=== PATIENT | female | born 1975 | race Caucasian/White ===

== ENCOUNTER → 2017-04-07 07:48 | Outpatient (CLI) | payer OTHER, SELFPAY ==
--- NOTE | 2017-04-07 07:25 | HPBI_ITS ---
MAMMOGRAPHY - BILATERAL SCREENING REASON FOR EXAM: Female, 41 years old. Routine annual screening examination. PERTINENT HISTORY: Grandmother with breast cancer. Occasional pain in the upper outer quadrant of the left breast. TECHNIQUE: Digital bilateral breast jorge l (3D mammographic acquisition) in the CC and MLO projections. 2-D mediolateral oblique (MLO) and craniocaudad (CC) views of both breasts were obtained. CAD: Full Field Digital Mammography with Computer Added Detection was performed. COMPARISON: Comparison is made with prior study dated September 04, 2015 and January 24, 2014. FINDINGS: Breast Composition: The breasts are heterogeneously dense, which may obscure small masses. There are no dominant masses or suspicious calcifications. Stable benign-appearing bilateral axillary lymph nodes. No other significant abnormalities are identified. There has been no significant change since the prior study. HPBI/SCREENING MAMM (CAD), BILAT IMPRESSION: Stable bilateral screening mammogram. Yearly follow-up mammogram recommended. (A) ASSESSMENT CATEGORY: BIRADS Category 2: Benign. A letter regarding these results will be sent to the patient by the facility within 30 days. Approximately 10% of breast cancers are not detected by mammography. A normal mammogram should not delay biopsy of a clinically suspicious abnormality. [id number] Electronically Signed: Jonas Loving MD at 8:23 EST Tel [phone], Service support ,
== END ==
PROVIDERS: Visit Provider Obstetrics & Gynecology
DX: Z12.31 Encounter for screening mammogram for malignant neoplasm of breast (principal)
CPT/HCPCS: 77063; 77067

== ENCOUNTER → 2018-03-10 07:27 | Outpatient (CLI) | payer OTHER, SELFPAY ==
[2018-02-05 08:18] VITALS: BMI 34.0
[2018-03-10 08:56] LABS: Basophil# 0.06 X10^3/uL; Basophil% 1.1 % (0-1); Eosinophil# 0.16 X10^3/uL; Eosinophils% 2.9 % (0-5); Hematocrit 44.1 % (37-47); Hemoglobin 14.7 g/dl (12.0-15.0); Lymphocyte % 33.1 % (19-41); Mean Corp Hgb Conc 33.3 g/gl (32-36); Mean Corpuscular Hgb 30.5 pg (27.0-32.0); Mean Corpuscular Volume 91.5 fL (81-99); Mean Platelet Vol. 9.4 fl (6.2-12.0); Monocyte# 0.38 X10^3/uL; Neutrophil # 3.02 X10^3/uL (2.7-7.7); Neutrophil % 55.7 % (47-70); Platelet Count 236 K/mm3 (150-450); RBC Distribution Width CV 12.5 % (11.6-14.6); RBC Distribution Width SD 40.9 fl (35.1-43.9); Red Blood Count 4.82 M/mm3 (4.2-5.4); White Blood Count 5.4 K/mm3 (4.4-11.0)
[2018-03-10 08:59] LABS: POSITIVE COUNT NO; POSITIVE DIFFERENTIAL NO; POSITIVE MORPHOLOGY NO
[2018-03-10 09:14] LABS: ALB/GLOB Ratio 1.1 RATIO (0.9-2.4); AST(SGOT) 25 U/L (15-37); Alanine Aminotransfer ALT/SGPT 39 U/L (13-56); Albumin, Serum 3.8 g/dL (3.2-5.0); Alkaline Phosphatase 61 U/L (45-117); Anion Gap 8 (5-15); BUN 13 mg/dL (7-18); BUN/Creat Ratio 15.1 RATIO (10-20); Calcium,Total 9.1 mg/dL (8.5-10.1); Chloride 106 mmol/L (98-107); Cholesterol 242 mg/dL (200); Creatinine, Serum 0.86 mg/dL (0.55-1.02); EST Glomerular Filtration Rate 77 mL/min (>60); Est Glom Filt Rate - Afr Amer 93 mL/min (>60); Globulin 3.5 g/dL (2.2-4.2); Glucose 120 mg/dL (74-106); High Density Lipoprotein 53 mg/dL; Protein, Total 7.3 g/dL (6.4-8.2); Sodium Level 142 mmol/L (136-145); Triglycerides 87 mg/dL; Very Low Density Lipoprotein 17 mg/dL (5-40)
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
== END ==
PROVIDERS: Family Provider Internal Medicine; PCP Internal Medicine; Referring Provider Internal Medicine; Visit Provider Internal Medicine
DX: K21.9 Gastro-esophageal reflux disease without esophagitis (principal); R03.0 Elevated blood-pressure reading, without diagnosis of hypertension
CPT/HCPCS: 36415; 80053; 80061; 85025

== ENCOUNTER → 2018-04-20 08:06 | Outpatient (CLI) | payer OTHER, SELFPAY ==
[2018-04-02 08:19] VITALS: BMI 34.0
[2018-04-20 12:42] LABS: Anion Gap 9 (5-15); BUN 16 mg/dL (7-18); Calcium,Total 8.7 mg/dL (8.5-10.1); Chloride 103 mmol/L (98-107); Creatinine, Serum 0.84 mg/dL (0.55-1.02); EST Glomerular Filtration Rate 79 mL/min (>60); Est Glom Filt Rate - Afr Amer 95 mL/min (>60); Glucose 116 mg/dL (74-106); Potassium 4.1 mmol/L (3.5-5.1); Sodium Level 138 mmol/L (136-145)
== END ==
PROVIDERS: Family Provider Internal Medicine; PCP Internal Medicine; Visit Provider Internal Medicine
DX: I10 Essential (primary) hypertension (principal)
CPT/HCPCS: 36415; 80048

== ENCOUNTER → 2018-04-21 07:41 | Outpatient (CLI) | payer OTHER, SELFPAY ==
[2018-04-02 08:19] VITALS: BMI 34.0
--- NOTE | 2018-04-21 07:44 | BI_ITS ---
MAMMOGRAPHY - BILATERAL SCREENING REASON FOR EXAM: Female, 42 years old. Routine annual screening examination. PERTINENT HISTORY: Grandmother with breast cancer. TECHNIQUE: Digital bilateral breast jorge l (3D mammographic acquisition) in the CC and MLO projections. 2-D mediolateral oblique (MLO) and craniocaudad (CC) views of both breasts were obtained. CAD: Full Field Digital Mammography with Computer Added Detection was performed. COMPARISON: Comparison is made with prior study dated April 07, 2017 and September 04, 2015. FINDINGS: Breast Composition: The breasts are heterogeneously dense, which may obscure small masses. There are no dominant masses or suspicious calcifications. Stable asymmetry of breast tissue where more breast tissue is seen in the upper outer quadrant of the left breast as compared to the left side. Stable benign-appearing bilateral axillary lymph nodes. No other significant abnormalities are identified. There has been no significant change since the prior study. BI/SCREENING MAMM (CAD), BILAT IMPRESSION: Stable bilateral screening mammogram. Yearly follow-up mammogram recommended. (A) ASSESSMENT CATEGORY: BIRADS Category 2: Benign. A letter regarding these results will be sent to the patient by the facility within 30 days. Approximately 10% of breast cancers are not detected by mammography. A normal mammogram should not delay biopsy of a clinically suspicious abnormality. [id number] Electronically Signed: Jonas Loving, at 9:53 EST , Service support ,
== END ==
PROVIDERS: PCP Internal Medicine; Referring Provider Obstetrics & Gynecology; Visit Provider Obstetrics & Gynecology
DX: Z12.31 Encounter for screening mammogram for malignant neoplasm of breast (principal)
CPT/HCPCS: 77063; 77067

== ENCOUNTER → 2019-09-12 08:45 | Outpatient (CLI) | payer OTHER, SELFPAY ==
[2019-09-12 08:16] VITALS: BMI 34.0
[2019-09-12 12:31] LABS: Absolute Lymphocyte Count 1.55 X10^3/uL (0.83-4.51); Absolute Neutrophil Count 3.5 X10^3/uL (2.0-7.7); Basophil# 0.08 X10^3/uL; Basophil% 1.4 % (0-1); Eosinophil# 0.08 X10^3/uL; Eosinophils% 1.4 % (0-5); Hematocrit 46.1 % (37-47); Hemoglobin 14.9 g/dL (12.0-15.0); Lymphocyte # 1.55 X10^3/ul (4.0); Lymphocyte % 27.9 % (19-41); Mean Corp Hgb Conc 32.3 g/dL (32-36); Mean Corpuscular Hgb 30.7 pg (27.0-32.0); Mean Corpuscular Volume 95.1 fL (81-99); Mean Platelet Vol. 10.1 fl (6.2-12.0); Monocyte# 0.37 X10^3/uL; Monocyte% 6.7 % (0-10); NRBC Flagged by Analyzer 0 % (0-5); Neutrophil # 3.47 X10^3/uL (2.7-7.7); Neutrophil % 62.4 % (47-70); Platelet Count 250 K/mm3 (150-450); RBC Distribution Width CV 12.1 % (11.6-14.6); RBC Distribution Width SD 42.2 fl (35.1-43.9); Red Blood Count 4.85 M/mm3 (4.2-5.4); White Blood Count 5.6 K/mm3 (4.4-11.0)
[2019-09-12 13:09] LABS: ALB/GLOB Ratio 1.1 RATIO (0.9-2.4); AST(SGOT) 19 U/L (15-37); Alanine Aminotransfer ALT/SGPT 27 U/L (13-56); Alkaline Phosphatase 51 U/L (45-117); Anion Gap 3 (5-15); BUN 18 mg/dL (7-18); BUN/Creat Ratio 22.2 RATIO (10-20); Chloride 106 mmol/L (98-107); Cholesterol 156 mg/dL (200); Creatinine, Serum 0.81 mg/dL (0.55-1.02); EST Glomerular Filtration Rate 82 mL/min (>60); Est Glom Filt Rate - Afr Amer 99 mL/min (>60); Globulin 3.7 g/dL (2.2-4.2); Glucose 117 mg/dL (74-106); High Density Lipoprotein 55 mg/dL; Potassium 4.1 mmol/L (3.5-5.1); Protein, Total 7.7 g/dL (6.4-8.2); Sodium Level 137 mmol/L (136-145); Triglycerides 76 mg/dL; Very Low Density Lipoprotein 15 mg/dL (5-40)
[2019-09-15 09:11] LABS: Hemoglobin A1c 5.4 % (3.8-5.6)
== END ==
LOC: BIMLAB 08:45
PROVIDERS: PCP Internal Medicine; Referring Provider Internal Medicine; Visit Provider Internal Medicine
DX: I10 Essential (primary) hypertension (principal); E78.5 Hyperlipidemia, unspecified; K21.9 Gastro-esophageal reflux disease without esophagitis; R73.9 Hyperglycemia, unspecified
CPT/HCPCS: 36415; 80053; 80061; 83036; 85025

== ENCOUNTER → 2019-09-26 07:38 | Outpatient (CLI) | payer OTHER, SELFPAY ==
[2019-09-12 08:16] VITALS: BMI 34.0
--- NOTE | 2019-09-26 07:38 | BI_ITS ---
MAMMOGRAPHY - BILATERAL SCREENING REASON FOR EXAM: Female, 44 years old. Routine annual screening examination. PERTINENT HISTORY: Grandmother with breast cancer. Occasional left lateral breast pain. TECHNIQUE: Digital bilateral breast santos (3D mammographic acquisition) in the CC and MLO projections. 2-D mediolateral oblique (MLO) and craniocaudad (CC) views of both breasts were obtained. CAD: Full Field Digital Mammography with Computer Added Detection was performed. COMPARISON: Comparison is made with prior study of 04/21/2018 and 04/07/2017. FINDINGS: Breast Composition: The breasts are heterogeneously dense, which may obscure small masses. There are no dominant masses or suspicious calcifications. Once again, there is stable asymmetry of breast tissue where more breast tissue is seen in the upper outer quadrant of the left breast as compared to the right side. Stable benign-appearing bilateral axillary lymph nodes. No other significant abnormalities are identified. There has been no significant change since the prior study. BI/SCREEN MAMM (CAD) W/SANTOS BILAT IMPRESSION: Stable bilateral screening mammogram. Yearly follow-up mammogram recommended. (A) ASSESSMENT CATEGORY: BIRADS Category 2: Benign. A letter regarding these results will be sent to the patient by the facility within 30 days. Approximately 10% of breast cancers are not detected by mammography. A normal mammogram should not delay biopsy of a clinically suspicious abnormality. [id number] Electronically Signed: Jonas Loving, at 8:44 EDT , Service support ,
== END ==
PROVIDERS: PCP Internal Medicine; Referring Provider Internal Medicine; Visit Provider Internal Medicine
DX: Z12.31 Encounter for screening mammogram for malignant neoplasm of breast (principal)
CPT/HCPCS: 77063; 77067

== ENCOUNTER → 2020-10-23 09:10 | Outpatient (CLI) | payer OTHER, SELFPAY ==
[2020-10-23 12:10] LABS: Absolute Lymphocyte Count 1.66 X10^3/uL (0.83-4.51); Absolute Neutrophil Count 4.1 X10^3/uL (2.0-7.7); Basophil# 0.05 X10^3/uL; Basophil% 0.8 % (0-1); Eosinophils% 1.6 % (0-5); Hematocrit 46.1 % (37-47); Hemoglobin 15.2 g/dL (12.0-15.0); Lymphocyte # 1.66 X10^3/ul (0.83-4.51); Lymphocyte % 26.3 % (19-41); Mean Corpuscular Volume 94.1 fL (81-99); Mean Platelet Vol. 9.6 fl (6.2-12.0); Monocyte% 6.3 % (0-10); NRBC Flagged by Analyzer 0 % (0-5); Neutrophil # 4.07 X10^3/uL (2.7-7.7); Neutrophil % 64.7 % (47-70); Platelet Count 227 K/mm3 (150-450); RBC Distribution Width CV 12.4 % (11.6-14.6); RBC Distribution Width SD 43.2 fl (35.1-43.9); White Blood Count 6.3 K/mm3 (4.4-11.0)
[2020-10-23 12:29] LABS: ALB/GLOB Ratio 0.9 RATIO (0.9-2.4); AST(SGOT) 23 U/L (15-37); Alanine Aminotransfer ALT/SGPT 31 U/L (13-56); Albumin, Serum 3.6 g/dL (3.2-5.0); Alkaline Phosphatase 48 U/L (45-117); Anion Gap 4 (5-15); BUN 15 mg/dL (7-18); BUN/Creat Ratio 19.6 RATIO (10-20); Calcium,Total 8.8 mg/dL (8.5-10.1); Chloride 104 mmol/L (98-107); Cholesterol 176 mg/dL (200); Creatinine, Serum 0.77 mg/dL (0.55-1.02); EST Glomerular Filtration Rate 87 mL/min (>60); Est Glom Filt Rate - Afr Amer 105 mL/min (>60); Globulin 3.8 g/dL (2.2-4.2); Glucose 114 mg/dL (74-106); High Density Lipoprotein 57 mg/dL; Potassium 4.2 mmol/L (3.5-5.1); Protein, Total 7.4 g/dL (6.4-8.2); Sodium Level 136 mmol/L (136-145); Triglycerides 86 mg/dL; Very Low Density Lipoprotein 17 mg/dL (5-40)
== END ==
LOC: BIMLAB 09:11
PROVIDERS: PCP Internal Medicine; Referring Provider Internal Medicine; Visit Provider Internal Medicine
DX: Z00.00 Encounter for general adult medical examination without abnormal findings (principal)
CPT/HCPCS: 36415; 80053; 80061; 85025

== ENCOUNTER → 2020-11-05 07:10 | Outpatient (CLI) | payer OTHER, SELFPAY ==
--- NOTE | 2020-11-05 07:12 | BI_ITS ---
MAMMOGRAPHY - BILATERAL SCREENING REASON FOR EXAM: Female, 45 years old. Routine annual screening examination. PERTINENT HISTORY: Non-contributory. TECHNIQUE: Digital bilateral breast santos (3D mammographic acquisition) in the CC and MLO projections. 2-D mediolateral oblique (MLO) and craniocaudad (CC) views of both breasts were obtained. CAD: Full Field Digital Mammography with Computer Added Detection was performed. COMPARISON: Comparison is made with prior study dated 09/26/2019 and 04/21/2018. FINDINGS: Breast Composition: The breasts are heterogeneously dense, which may obscure small masses. There are no dominant masses or suspicious calcifications. Focal area of architectural distortion is seen on the craniocaudad view of the right breast in the lateral aspect. This is not well-seen on the MLO view. The patient will be recalled for additional views including compression spot views. No other significant abnormalities are identified. BI/SCRN MAMM (CAD)W/SANTOS BILAT IMPRESSION: Further imaging evaluation recommended, as described above. (E) Recall Side: Right Breast ASSESSMENT CATEGORY: BIRADS Category 0: Incomplete. Need additional imaging evaluation. A letter regarding these results will be sent to the patient by the facility within 30 days. Approximately 10% of breast cancers are not detected by mammography. A normal mammogram should not delay biopsy of a clinically suspicious abnormality. [id number] Electronically Signed: Jonas Loving MD at 9:07 EDT , Service support ,
== END ==
PROVIDERS: PCP Internal Medicine; Referring Provider Internal Medicine; Visit Provider Internal Medicine
DX: Z12.31 Encounter for screening mammogram for malignant neoplasm of breast (principal)
CPT/HCPCS: 77063; 77067

== ENCOUNTER → 2020-11-08 14:23 | Outpatient (CLI) | payer OTHER, SELFPAY ==
--- NOTE | 2020-11-08 14:28 | BI_ITS ---
MAMMOGRAPHY - UNILATERAL DIAGNOSTIC: RIGHT BREAST REASON FOR EXAM: Female, 45 years old. Abnormal screening mammogram. PERTINENT HISTORY: Grandmother with breast cancer. TECHNIQUE: Compression spot views of the upper-outer quadrant of the right breast in the mediolateral oblique and craniocaudad views were obtained. CAD: Full Field Digital Mammography with Computer Added Detection was performed. COMPARISON: Comparison is made with prior study 11/05/2020. FINDINGS: Breast Composition: The breasts are heterogeneously dense, which may obscure small masses. Persistent architectural distortion is seen in the upper lateral aspect of the breast. Correlation with ultrasound is recommended. No other significant abnormalities are identified. BI/DIAG MAMM W/CAD, UNILAT IMPRESSION: Persistent architectural distortion is seen in the upper outer quadrant of the breast. Correlation with ultrasound is recommended. ASSESSMENT CATEGORY: BIRADS Category 0: Incomplete. Need additional imaging evaluation. A letter regarding these results will be sent to the patient by the facility within 30 days. Approximately 10% of breast cancers are not detected by mammography. A normal mammogram should not delay biopsy of a clinically suspicious abnormality. Electronically Signed: Jonas Loving MD at 15:09 EDT , Service support ,
--- NOTE | 2020-11-08 14:28 | US_ITS ---
STUDY: ULTRASOUND BREAST - RIGHT REASON FOR EXAM: Female, 45 years old. Abnormal screening mammogram. TECHNIQUE: Axial and longitudinal images of the RIGHT breast were performed with a high resolution ultrasound transducer. # OF IMAGES: 64 COMPARISON: Comparison is made with prior mammogram done earlier in the day. FINDINGS: RIGHT Breast: The upper outer quadrant of the right breast was examined by ultrasound. No sonographic abnormality is seen. Further correlation with MRI is recommended. US/Breast Limited Unilateral IMPRESSION: No sonographic abnormality is seen. Persistent architectural distortion on the mammogram. Correlation with MRI is recommended. ASSESSMENT CATEGORY: BIRADS Category 0: Incomplete. Need additional imaging evaluation. A letter regarding these results will be sent to the patient by the facility within 30 days. Electronically Signed: Jonas Loving MD at 15:49 EDT , Service support ,
== END ==
LOC: OPBI 14:23
PROVIDERS: PCP Internal Medicine; Referring Provider Internal Medicine; Visit Provider Internal Medicine
DX: R92.8 Other abnormal and inconclusive findings on diagnostic imaging of breast (principal); Z80.3 Family history of malignant neoplasm of breast
CPT/HCPCS: 76642; 77065

== ENCOUNTER → 2020-11-16 10:59 | Outpatient (CLI) | payer OTHER, SELFPAY ==
--- NOTE | 2020-11-16 11:02 | MRI_ITS ---
STUDY: BILATERAL BREAST MR WITHOUT AND WITH CONTRAST REASON FOR EXAM: Female, 45 years old. Architectural distortion on mammography. Normal right breast ultrasound. TECHNIQUE: Multi-sequence multi-echo imaging of both breasts was performed with a dedicated breast coil. T1-weighted and T2-weighted images were performed before the administration of contrast. T1-weighted images were also performed after the administration of 18 mL of Dotarem contrast without complications. COMPARISON: Bilateral mammogram dated 11/08/2020, right diagnostic mammogram dated 11/08/2020 and right breast ultrasound dated 11/08/2020. FINDINGS: RIGHT BREAST: The breast tissue is scattered fibroglandular densities with moderate background enhancement. Asymmetry of glandular tissue, right greater than left, in the upper outer quadrant. The architectural distortion in the right breast is noted but does not have significant enhancement. 6 mm in diameter enhancing ovoid circumscribed mass in the upper outer quadrant at the inferior aspect of the architectural distortion. There are no abnormal enhancing masses or areas of non-mass enhancement in the right breast. Normal lymph nodes in the right axilla. LEFT BREAST: The breast tissue is scattered fibroglandular densities with moderate background enhancement. 5 mm in diameter enhancing circumscribed mass at the 11 o''clock position. There are no abnormal enhancing masses or areas of non-mass enhancement in the left breast. There are no enlarged or abnormal lymph nodes. There is no abnormality in the visualized regions of the chest or liver. MRI/Breast Bilateral W/O and W IMPRESSION: Architectural distortion which matches the mammographic findings. A single 6 mm in diameter circumscribed ovoid enhancing mass in the upper outer quadrant at the inferior border of the architectural distortion. A 6 month follow-up right diagnostic mammogram, right ultrasound and MRI of the breast with contrast is recommended to be sure there is no change in these findings. 5 mm in diameter ovoid circumscribed enhancing mass at the level of the position of the left breast, thought to be fibrocystic. This also can be reevaluated at the repeat breast MRI study in 6 months. CATEGORY: BIRADS Category 3: Probably Benign - Short-Interval Follow-up Suggested. A letter regarding these results will be sent to the patient by the facility within 30 days. Electronically Signed: Jesus Chakraborty MD at 13:32 EDT , Service support ,
== END ==
PROVIDERS: PCP Internal Medicine; Referring Provider Internal Medicine; Visit Provider Internal Medicine
DX: R92.8 Other abnormal and inconclusive findings on diagnostic imaging of breast (principal); N64.89 Other specified disorders of breast
CPT/HCPCS: 77049; A9575; C8908

== ENCOUNTER 2021-05-23 08:48 | Outpatient (CLI) | payer OTHER, SELFPAY ==
--- NOTE | 2021-05-23 08:54 | US_ITS ---
STUDY: ULTRASOUND BREAST - RIGHT REASON FOR EXAM: Female, 45 years old. Abnormal screening mammogram. Persistent architectural distortion in the upper lateral aspect of the right breast. TECHNIQUE: Axial and longitudinal images of the RIGHT breast were performed with a high resolution ultrasound transducer. # OF IMAGES: 101 COMPARISON: Comparison is made with prior mammogram done earlier in the day. FINDINGS: RIGHT Breast: The lateral half of the right breast was examined by ultrasound. There is heterogeneously dense breast. No sonographic abnormality is seen. US/Breast Limited Unilateral IMPRESSION: No sonographic abnormality is seen as described. Correlation with a repeat MRI is recommended. ASSESSMENT CATEGORY: BIRADS Category 0: Incomplete. Need additional imaging evaluation. A letter regarding these results will be sent to the patient by the facility within 30 days. Electronically Signed: Jonas Loving MD at 13:59 EDT ,
--- NOTE | 2021-05-23 08:54 | MRI_ITS ---
STUDY: BILATERAL BREAST MR WITHOUT AND WITH CONTRAST REASON FOR EXAM: Female, 45 years old. Follow-up of architectural distortion of right breast. TECHNIQUE: Multi-sequence multi-echo imaging of both breasts was performed with a dedicated breast coil. T1-weighted and T2-weighted images were performed before the administration of contrast. T1-weighted images were also performed after the administration of 18 mL of Dotarem contrast. COMPARISON: Prior MRI of the breasts dated 11/16/2020, bilateral mammogram dated 05/23/2021 and right breast ultrasound dated 05/23/2021. FINDINGS: RIGHT BREAST: The breast tissue is scattered fibroglandular densities with minimal background enhancement. Stable mild architectural distortion in the upper outer quadrant of the right breast. Stable 5 mm in diameter circumscribed mass in the right breast at the 11 o''clock position. There are no abnormal enhancing masses or areas of non-mass enhancement in the right breast. LEFT BREAST: The breast tissue is scattered fibroglandular densities with minimal background enhancement. There are no abnormal enhancing masses or areas of non-mass enhancement in the left breast. There are no enlarged or abnormal lymph nodes. There is no abnormality in the visualized regions of the chest or liver. MRI/Breast Bilateral W/O and W IMPRESSION: Stable 5 mm in diameter circumscribed mass at the 11 o''clock position of the right breast. No architectural distortion on the breast MRI examination at this time. Yearly follow-up screening mammogram with right diagnostic mammogram and repeat right breast ultrasound would be appropriate. CATEGORY: BIRADS Category 2: Benign. A letter regarding these results will be sent to the patient by the facility within 30 days. Electronically Signed: Jesus Chakraborty MD at 10:09 EDT ,
--- NOTE | 2021-05-23 08:54 | BI_ITS ---
MAMMOGRAPHY - BILATERAL DIAGNOSTIC REASON FOR EXAM: Female, 45 years old. Six-month follow-up examination for architectural distortion in the upper lateral aspect of the right breast. PERTINENT HISTORY: Grandmother with breast cancer. TECHNIQUE: Digital bilateral breast jorge l (3D mammographic acquisition) in the CC and MLO projections. 2-D mediolateral oblique (MLO) and craniocaudad (CC) views of both breasts were obtained. Compression views of the right breast in the mediolateral oblique and craniocaudad projections were obtained as well. CAD: Full Field Digital Mammography with Computer Added Detection was performed. COMPARISON: Comparison is made with prior study dated 11/08/2020 11/05/2020. FINDINGS: Breast Composition: The breasts are heterogeneously dense, which may obscure small masses. Once again, there is persistent architectural distortion in the upper lateral aspect of the right breast. A repeat MR and ultrasound is recommended for further evaluation. No other significant abnormalities are identified. BI/DIAG MAMM W/CAD, BILAT IMPRESSION: Persistent architectural distortion in the upper outer quadrant of the right breast as described. A repeat MRI examination as well as ultrasound is recommended for further evaluation. ASSESSMENT CATEGORY: BIRADS Category 0: Incomplete. Need additional imaging evaluation. A letter regarding these results will be sent to the patient by the facility within 30 days. Approximately 10% of breast cancers are not detected by mammography. A normal mammogram should not delay biopsy of a clinically suspicious abnormality. Electronically Signed: Jonas Loving MD at 10:57 EDT ,
== END 2021-05-23 23:59 | disposition home or self-care (01) ==
LOC: OPBI 08:51
PROVIDERS: PCP Internal Medicine; Referring Provider Internal Medicine; Visit Provider Internal Medicine
DX: R92.8 Other abnormal and inconclusive findings on diagnostic imaging of breast (principal); R92.2 Inconclusive mammogram
CPT/HCPCS: 76642; 77049; 77062; 77066; A9575; A4216; C8908; G0279

== ENCOUNTER → 2022-01-06 | Outpatient (CLI) | payer OTHER, SELFPAY ==
[2022-01-06 12:19] LABS: Absolute Lymphocyte Count 1.49 X10^3/uL (0.83-4.51); Basophil# 0.06 X10^3/uL; Eosinophil# 0.08 X10^3/uL; Eosinophils% 1.3 % (0-5); Hematocrit 43.4 % (37-47); Hemoglobin 14.2 g/dL (12.0-15.0); Lymphocyte # 1.49 X10^3/ul (0.83-4.51); Lymphocyte % 24.6 % (19-41); Mean Corp Hgb Conc 32.7 g/dL (32-36); Mean Corpuscular Hgb 30.9 pg (27.0-32.0); Mean Corpuscular Volume 94.3 fL (81-99); Mean Platelet Vol. 9.9 fl (6.2-12.0); Monocyte# 0.38 X10^3/uL; Monocyte% 6.3 % (0-10); NRBC Flagged by Analyzer 0 % (0-5); Neutrophil % 66.1 % (47-70); Platelet Count 244 K/mm3 (150-450); RBC Distribution Width CV 12.3 % (11.6-14.6); RBC Distribution Width SD 42.7 fl (35.1-43.9); White Blood Count 6.1 K/mm3 (4.4-11.0)
[2022-01-06 12:41] LABS: AST(SGOT) 22 U/L (15-37); Alanine Aminotransfer ALT/SGPT 31 U/L (13-56); Albumin, Serum 3.8 g/dL (3.2-5.0); Alkaline Phosphatase 49 U/L (45-117); Anion Gap 6 (5-15); BUN 18 mg/dL (7-18); BUN/Creat Ratio 23.6 RATIO (10-20); Calcium,Total 9.1 mg/dL (8.5-10.1); Chloride 108 mmol/L (98-107); Cholesterol 165 mg/dL (200); Creatinine, Serum 0.76 mg/dL (0.55-1.02); EST Glomerular Filtration Rate 87 mL/min (>60); Est Glom Filt Rate - Afr Amer 105 mL/min (>60); Globulin 3.7 g/dL (2.2-4.2); Glucose 128 mg/dL (74-106); High Density Lipoprotein 55 mg/dL; Potassium 3.6 mmol/L (3.5-5.1); Protein, Total 7.5 g/dL (6.4-8.2); Sodium Level 139 mmol/L (136-145); Triglycerides 129 mg/dL; Very Low Density Lipoprotein 26 mg/dL (5-40)
== END | disposition home or self-care (01) ==
PROVIDERS: PCP Internal Medicine; Visit Provider Physician Assistant
DX: Z00.00 Encounter for general adult medical examination without abnormal findings (principal)
CPT/HCPCS: 36415; 80053; 80061; 85025

== ENCOUNTER → 2022-01-16 | Outpatient (CLI) | payer OTHER, SELFPAY ==
--- NOTE | 2022-01-16 07:28 | BI_ITS ---
MAMMOGRAPHY - BILATERAL SCREENING REASON FOR EXAM: Female, 46 years old. Routine annual screening examination. PERTINENT HISTORY: Grandmother with breast cancer. TECHNIQUE: Digital bilateral breast santos (3D mammographic acquisition) in the CC and MLO projections. 2-D mediolateral oblique (MLO) and craniocaudad (CC) views of both breasts were obtained. CAD: Full Field Digital Mammography with Computer Added Detection was performed. COMPARISON: Comparison is made with prior examination of 11/05/2020 and 05/23/2021. FINDINGS: Breast Composition: The breasts are heterogeneously dense, which may obscure small masses. There are no dominant masses or suspicious calcifications. Stable small benign-appearing bilateral axillary lymph nodes. No other significant abnormalities are identified. There has been no significant change since the prior study. BI/SCRN MAMM (CAD)W/SANTOS BILAT IMPRESSION: Stable bilateral screening mammogram. Yearly follow-up mammogram recommended. (A) ASSESSMENT CATEGORY: BIRADS Category 2: Benign. A letter regarding these results will be sent to the patient by the facility within 30 days. Approximately 10% of breast cancers are not detected by mammography. A normal mammogram should not delay biopsy of a clinically suspicious abnormality. [id number] Electronically Signed: Jonas Loving MD at 9:34 EST ,
== END | disposition home or self-care (01) ==
LOC: OPBI 07:26
PROVIDERS: PCP Internal Medicine; Referring Provider Student in an Organized Health Care Education/Training Program; Visit Provider Student in an Organized Health Care Education/Training Program
DX: Z12.31 Encounter for screening mammogram for malignant neoplasm of breast (principal)
CPT/HCPCS: 77063; 77067

== ENCOUNTER 2022-08-01 07:42 | Day surgery (SDC) | payer OTHER, SELFPAY ==
[2022-08-01] MEDS: Lactated Ringers 1,000 ML 15 ML IV (08:08)
[2022-08-01 08:11] VITALS: BP 135/88; PULSE 71; RESP 16; TEMP 36.6; O2SAT 96; BMI 33.1
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
--- NOTE | 2022-08-01 09:37 | OP.COLON_ITS ---
Patient Name: Laura Kenny Procedure Date: 08/01/2022 9:11 AM Date of : 1975 Age: 47 Procedure: Colonoscopy Indications: Screening for colorectal malignant neoplasm Providers: Chad Lunsford MD Referring MD: Chad Lunsford MD Medicines: Propofol per Anesthesia Patient Profile: This is a 47 year old female. Refer to note in patient chart for documentation of history and physical. Last Colonoscopy: none. The patient's first colonoscopy is today. Complications: No immediate complications. Procedure: Pre-Anesthesia Assessment: - Prior to the procedure, a History and Physical was performed, and patient medications and allergies were reviewed. The patient's tolerance of previous anesthesia was also reviewed. The risks and benefits of the procedure and the sedation options and risks were discussed with the patient. All questions were answered, and informed consent was obtained. Prior Anticoagulants: The patient has taken no previous anticoagulant or antiplatelet agents. After reviewing the risks and benefits, the patient was deemed in satisfactory condition to undergo the procedure. After I obtained informed consent, the scope was passed under direct vision. Throughout the procedure, the patient's blood pressure, pulse, and oxygen saturations were monitored continuously. The adult colonoscope was introduced through the anus and advanced to the cecum, identified by appendiceal orifice and ileocecal valve. The colonoscopy was performed without difficulty. The patient tolerated the procedure well. The quality of the bowel preparation was good. Scope In: 9:24:36 AM Scope Withdrawal Time 0 hours 6 minutes 1 second Scope Out: 9:35:00 AM Total Procedure Duration Time 0 hours 10 minutes 24 seconds Findings: The entire examined colon appeared normal on direct and retroflexion views. Impression: - The entire examined colon is normal on direct and retroflexion views. - No specimens collected. Recommendation: - Discharge patient to home. - Resume previous diet. - Continue present medications. - Repeat colonoscopy in 10 years for screening purposes. Procedure Code(s): --- Professional --- 48589, Colonoscopy, flexible; diagnostic, including collection of specimen(s) by brushing or washing, when performed (separate procedure) Diagnosis Code(s): --- Professional --- Z12.11, Encounter for screening for malignant neoplasm of colon CPT copyright 2017 [employer]. All rights reserved. The codes documented in this report are preliminary and upon forming process worker review may be revised to meet current compliance requirements. Chad Lunsford MD 08/01/2022 9:36:44 AM This report has been signed electronically. Number of Addenda: 0 Note Initiated On: 08/01/2022 9:11 AM
[2022-08-01 09:38] VITALS: BP 105/54; BP 135/88; PULSE 68; RESP 16; TEMP 36.9; O2SAT 99
--- NOTE | 2022-08-01 09:38 | OP.CCLET_ITS ---
08/01/2022 Catrachito Garnica MD [address] [place] [address] [place] [address] Re : Colonoscopy procedure for Laura Kenny Dear Dr. Garnica This procedure was performed on Monday, August 01, 2022. My impressions and recommendations are as follows: Impressions : - The entire examined colon is normal on direct and retroflexion views. - No specimens collected. Recommendations : - Discharge patient to home. - Resume previous diet. - Continue present medications. - Repeat colonoscopy in 10 years for screening purposes. My findings are described in the full procedure note, which is enclosed. If I can be of further assistance, please feel free to contact me at Doctor phone number(s): , Work: . Sincerely, Chad Lunsford MD 08/01/2022 9:36:44 AM This report has been signed electronically.
[2022-08-01 09:40] VITALS: BP 109/73; BP 135/88; PULSE 60; RESP 16; O2SAT 94
[2022-08-01 09:44] VITALS: BP 112/70; BP 135/88; PULSE 59; RESP 16; O2SAT 95
[2022-08-01 09:52] VITALS: BP 115/73; BP 135/88; PULSE 55; RESP 16; TEMP 36.3; O2SAT 96
[2022-08-01 10:04] VITALS: BP 135/88
== END 2022-08-01 10:15 | disposition home or self-care (01) ==
LOC: EN 07:45 → AC 07:45
PROVIDERS: PCP Internal Medicine; Referring Provider Surgery; Visit Provider Surgery
PROC: 0DJD8ZZ Inspection of Lower Intestinal Tract, Via Natural or Artificial Opening Endoscopic (ICD-10-PCS; CPT 45378; principal; 2022-08-01 08:55)
DX: Z12.11 Encounter for screening for malignant neoplasm of colon (principal); E78.00 Pure hypercholesterolemia, unspecified; Z87.891 Personal history of nicotine dependence; K21.9 Gastro-esophageal reflux disease without esophagitis; I10 Essential (primary) hypertension; Z79.899 Other long term (current) drug therapy
CPT/HCPCS: 45378; J7120; J2405

== ENCOUNTER 2022-09-21 14:59 | Emergency (ER) | payer OTHER, SELFPAY ==
[2022-09-21 15:00] VITALS: BP 158/93; PULSE 83; RESP 16; TEMP 36.6; O2SAT 100; BMI 33.5
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
[2022-09-21] MEDS: Lidocaine 1% (20 ml mdv) 20 ML Vial 5 ML INFILT (15:28)
[2022-09-21] MEDS: Azithromycin 250 MG Tablet 500 MG PO (15:28)
== END 2022-09-21 16:22 | disposition home or self-care (01) ==
PROVIDERS: Emergency Provider Emergency Medicine; PCP Internal Medicine; Visit Provider Emergency Medicine
DX: S61.216A Laceration without foreign body of right little finger without damage to nail, initial encounter (principal); W54.0XXA Bitten by dog, initial encounter; I10 Essential (primary) hypertension; E78.00 Pure hypercholesterolemia, unspecified; Z79.899 Other long term (current) drug therapy; Z87.891 Personal history of nicotine dependence
CPT/HCPCS: 12001; 99284

== ENCOUNTER → 2023-02-10 | Outpatient (CLI) | payer OTHER, SELFPAY ==
--- NOTE | 2023-02-10 08:51 | BI_ITS ---
MAMMOGRAPHY - BILATERAL DIAGNOSTIC REASON FOR EXAM: Female, 47 years old. Bilateral asymmetries for which further workup was recommended. PERTINENT HISTORY: Breast cancer in grandmother, age not identified. TECHNIQUE: Digital examination. Mediolateral oblique (MLO) and craniocaudad (CC) views of both breasts were obtained. CAD: CAD was performed on this study. COMPARISON: Screening mammograms dated January 23, 2023 and January 16, 2022. Breast MRI dated May 23, 2021. FINDINGS: Breast Composition: There are scattered areas of fibroglandular density. There are no dominant masses or suspicious calcifications. Targeted ultrasound of both breasts showed no abnormality (see detailed ultrasound report). BI/DIAG MAMM W/CAD, BILAT IMPRESSION: Mild asymmetry of both breasts with no ultrasonographic abnormality of either breast. Follow-up screening mammogram in January 2024 recommended. ASSESSMENT CATEGORY: BIRADS Category 2: Benign. A letter regarding these results will be sent to the patient by the facility within 30 days. FOLLOW UP RECOMMENDATION: Yearly follow up mammogram recommended. (A) Approximately 10% of breast cancers are not detected by mammography. A normal mammogram should not delay biopsy of a clinically suspicious abnormality. Electronically Signed: Jesus Chakraborty MD at 10:43 EST ,
--- NOTE | 2023-02-10 08:52 | US_ITS ---
STUDY: ULTRASOUND BREAST - RIGHT REASON FOR EXAM: Female, 47 years old. Mild asymmetry of breast tissue. Workup. TECHNIQUE: Axial and longitudinal images of the RIGHT breast were performed with a high resolution ultrasound transducer. # OF IMAGES: 73 COMPARISON: Bilateral diagnostic mammogram performed today. FINDINGS: RIGHT Breast: Targeted ultrasound of the right breast shows normal parenchymal tissue. No dominant cystic or solid masses are identified. IMPRESSION: No abnormality of the right breast by ultrasound. Yearly screening mammogram recommended. ASSESSMENT CATEGORY: BIRADS Category 1: Negative. A letter regarding these results will be sent to the patient by the facility within 30 days. Electronically Signed: Jesus Chakraborty MD at 10:46 EST , STUDY: ULTRASOUND BREAST - LEFT REASON FOR EXAM: Female, 47 years old. Asymmetry of glandular tissue on mammogram. Workup. TECHNIQUE: Axial and longitudinal images of the LEFT breast were performed with a high resolution ultrasound transducer. # OF IMAGES: 73 COMPARISON: Bilateral diagnostic mammogram performed today. FINDINGS: LEFT Breast: Targeted ultrasound of the left breast shows normal glandular tissue. No dominant cystic or solid masses are present. US/Breast Limited Unilateral IMPRESSION: Normal glandular tissue on the targeted left breast ultrasound. Yearly follow-up screening mammogram recommended. ASSESSMENT CATEGORY: 2 Electronically Signed: Jesus Chakraborty MD at 10:47 EST ,
== END | disposition home or self-care (01) ==
PROVIDERS: PCP Internal Medicine; Referring Provider Nurse Practitioner Women's Health; Visit Provider Nurse Practitioner Women's Health
DX: R92.8 Other abnormal and inconclusive findings on diagnostic imaging of breast (principal)
CPT/HCPCS: 76641; 76642; 77066

== ENCOUNTER → 2023-03-04 | Outpatient (CLI) | payer OTHER, SELFPAY ==
--- OUTSIDE RECORDS SUMMARY | 2023-03-04 08:29 | XMS RPT_ITS | CCD ---
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 Name Role Phone Pcp FRENCH WEAVER, No Primary Care Provider ELIZABETH Becerril Referring Unavailable ELIZABETH SANCHEZ Attending Unavailable Allergies Allergy Classification Reported Allergen(s) Allergy Type Date of Onset Reaction(s) Facility (7 sources) Amoxicillin; Translations: [AMOXICILLIN] Drug Allergy 6 Hives [facility] (7 sources) cyclobenzaprine; Translations: [CYCLOBENZAPRINE HCL] Drug Allergy 8 [facility] (7 sources) Penicillins; Translations: [PENICILLINS] Propensity to adverse reactions 6 [facility] (7 sources) Sulfamethoxazole / Trimethoprim; Translations: [SULFAMETHOXAZOLE-TR IMETHOPRIM] Drug Allergy 6 GI Upset [facility] Medications Completed/Discontinued Medications Medication Drug Class(es) Dates Sig (Normalized) Sig (Original) omeprazole 40 mg delayed release oral capsule (6 sources) Proton Pump Inhibitor Start: 08-28-2017 take 1 capsule by mouth once daily Omeprazole 40 mg capsule Take 1 capsule by mouth once daily. 30 capsule 5 08/28/2017 Active Problems Active Problems Problem Classification Problem Date Documented Date Episodic/Chronic Abdominal pain (1 source) Chronic pelvic pain of female; Translations: [Pelvic and perineal pain] 01-02-2023 Episodic Adjustment disorders (6 sources) Adjustment disorder with depressed mood; Translations: [Adjustment disorder with depressed mood] Onset: 12-10-2005 12-10-2005 Chronic Anxiety disorders (6 sources) Generalized anxiety disorder; Translations: [Generalized anxiety disorder] Onset: 07-29-2006 07-29-2006 Chronic Esophageal disorders (6 sources) Gastroesophageal reflux disease; Translations: [Gastro-esophageal reflux disease without esophagitis] Onset: 09-14-2006 09-14-2006 Chronic Headache; including migraine (6 sources) Migraine with aura; Translations: [Migraine with aura, not intractable, without status migrainosus] Onset: 09-15-2007 09-15-2007 Chronic Menstrual disorders (6 sources) Irregular periods; Translations: [Irregular menstruation, unspecified] 04-10-2005 Chronic Nonmalignant breast conditions (2 sources) Breast finding ; Translations: [Dense breast tissue] 01-02-2023 Episodic Other endocrine disorders (6 sources) Polycystic ovary; Translations: [Polycystic ovarian syndrome] Onset: 12-10-2005 12-10-2005 Chronic Other female genital disorders (1 source) Vaginal dryness; Translations: [Other specified noninflammatory disorders of vagina] 01-02-2023 Episodic Other nutritional; endocrine; and metabolic disorders (6 sources) Metabolic syndrome X; Translations: [Dysmetabolic syndrome X] Onset: 12-10-2005 12-10-2005 Chronic Other nutritional; endocrine; and metabolic disorders (6 sources) Obese class I; Translations: [Obesity, unspecified] 11-04-2016 Chronic Other screening for suspected conditions (not mental disorders or infectious disease) (6 sources) Patient encounter status; Translations: [Encounter for screening mammogram for malignant neoplasm of breast] Onset: 01-23-2023 01-02-2023 Episodic Unclassified (1 source) Dense breast tissue; Translations: [Dense breast tissue] Onset: 01-23-2023 Past or Other Problems Problem Classification Problem Date Documented Da te Episodic/Chronic Phlebitis; thrombophlebitis and thromboembolism (7 sources) H/O: Deep vein thrombosis; Translations: [Personal history of other venous thrombosis and embolism] Onset: 09-15-2007 01-02-2023 Episodic Sprains and strains (6 sources) Sprain of spinal ligament; Translations: [Sprain of unspecified site of back] Onset: 04-23-2006 04-23-2006 Episodic Results Test Name Value Interpretation Reference Range Facil ity Vital Signs Date Time Vital Sign Value Performing Clinician Rose Marie terry 01-02-2023 07:12-0500 Body height 163.8 cm Elizabeth Sanchez APRN.MANAGER TELEMARKETING Work Phone: [facility] 01-02-2023 07:12-0500 Body weight 95.17 kg Elizabeth Sanchez APRN.CNP Work Phone: [facility] 01-02-2023 07:12-0500 Diastolic blood pressure 80 mm[Hg] Elizabeth Sanchez APRN.CNP Work Phone: [facility] 01-02-2023 07:12-0500 Systolic blood pressure 140 mm[Hg] Elizabeth Sanchez APRN.CNP Work Phone: [facility] Encounters Encounter Date Encounter Type Care Provider Facility Start: 02-05-2023 Orders Only Elizabeth URIBE RN.CURTIS Work Phone: OB/Gynecology Procedures Date Procedure Procedure Detail Performing Clinician Start: 11-08-2004 Lipid 1996 panel - S huseyin or Plasma Elizabeth Sanchez APRN.CNP Work Phone: Plan of Treatment Date Care Activity Detail Author Start: 01-03-2028 HPV Testing HPV Testing [facility] Start: 01-03-2028 Pap Testing Pap Testing [facility] Start: 01-03-2028 Screening for malignant neoplasm of cervix [facility] Start: 11-04-2026 Urine microalbumin profile DTaP,Tdap,Td Vaccine (3 - Tdap) [facility] Start: 01-24-2024 Mammography Mammogram Screening [facility] Start: 01-24-2024 Screening for malignant neoplasm of breast Mammogram Screening [facility] Start: 10-17-2022 Influenza vaccination Influ[facility] Vaccine (#[facility]) [facility] Start: 02-16-2022 Depression Assessment Depression Assessment [facility] Start: 2021 Cologuard (FIT-DNA) Cologuard (FIT-DNA) [facility] Start: 2021 Colonoscopy Colonoscopy [facility] Start: 2021 Colorectal Cancer Screening Colorectal Cancer Screening [facility] Start: [address] Colonography [facility] Start: 2021 Diabetes Screening Diabetes Screening [facility] Start: 2021 Fecal Occult Blood Fecal Occult Blood [facility] Start: 2021 Lipid 1996 panel - Serum or Plasma Lipid Screening [facility] Start: 2021 Lipid panel Lipid Screening [facility] Start: 2021 Screening for malignant neoplasm of colon [facility] Start: 2021 Sigmoidoscopy Sigmoidoscopy [facility] Start: 07-31-2020 Pap Testing Pap Testing [facility] Start: 07-31-2016 Mammography Mammogram Screening [facility] Start: 2006 HPV Testing HPV Testing [facility] Start: 1994 HIV Screening HIV Screening [facility] Start: 1994 HIV screening HIV Screening [facility] Start: 1976 Covid-19 Vaccine (#1) Covid-19 Vaccine (#1) [facility] Start: 1976 Hepatitis B Vaccine (1 of 3 - 3-dose series) Hepatitis B Vaccine (1 of 3 - 3-dose series) [facility] End: 02-25-2024 TATO DIAGNOSTIC BILATERAL [facility] Radiology Routine Abnormal mammogram 1 Occurrences starting 01/26/2023 until 02/25/2024 [facility] Work Phone: Immunizations Immunization Date Immunization Notes Care Provider Courtney brownlee 11-04-2016 tetanus and diphther ia toxoids, adsorbed, preservative free, for adult use (5 Lf of tetanus toxoid and 2 Lf of diphtheria toxoid) Elizabeth Sanchez APRN.MANAGER TELEMARKETING Work Phone: [facility] 11-04-2016 influenza virus vaccine, unspecified formulation Elizabeth Hadeedee FRENCH WEAVER.MANAGER TELEMARKETING Work Phone: [facility] 01-08-2014 influenza, seasonal, injectable, preservative free Elizabeth Hadeedee FRENCH WEAVER.MANAGER TELEMARKETING Work Phone: [facility] 11-16-2006 influenza virus vaccine, unspecified formulation Elizabeth Haury FRENCH WEAVER.MANAGER TELEMARKETING Work Phone: [facility] 06-23-2005 diphtheria, tetanus toxoids and acellular pertussis vaccine Elizabeth Hadeedee FRENCH WEAVER.MANAGER TELEMARKETING Work Phone: [facility] Work Phone: Payers Date Payer Category Payer Private Health Insurance [facility] CHO[employer]US [id number] 2010-Present [phone] [address] [place] [address] [facility] [place] [id number] 2010 Unknown [id number] Social History Date Type Detail Facility Start: 01-02-2023 Tobacco smoking status NHIS Ex-smoker [facility] Work Phone: End: 02-16-1994 History of tobacco use Current smoker [facility] Work Phone: End: 02-16-1994 History of tobacco use Cigarette Smoker [facility] Work Phone: Start: 01-02-2023 Tobacco use and exposure Smokeless tobacco non-user [facility] Work Phone: Start: 01-02-2023 Alcohol intake Current drinke r of alcohol (finding) [facility] Start: 01-02-2023 Alcohol intake [facility] Start: 01-02-2023 Tobacco use panel [facility] Start: 01-02-2023 Education 13 [facility] Start: 01-02-2023 Tobacco Comment Pt smoked abou t a 1/4 pack a week for approx 2 1/2 year [facility] Start: 1975 Sex Assigned At Not on file [facility] NEGATED: Highlighted rowStart: GLENDY History of tobacco use Passive smoker [facility] Work Phone: Clinical Notes 01-02-2023 to 02-02-2023 Telephone Encounter - Farheen Goodwin RN - 02/02/2023 2:59 PM ESTTelephone Encounter - Janneth Tinajero - 02/02/2023 12:45 PM ESTLetter - Coordinator, Mammography - 01/26/2023 10:36 AM EST Note Date & Type Note Facility 02-02-2023 Miscellaneous Notes See 01/29 phone note. These orders were already faxed to [facility] this morning. Farheen Goodwin, JONATAN Patient verified by name and . She is wanting to have her testing done at [facility] so they are requesting a Diagnostic Bilateral Mammogram order and a Diagnostic Bilateral Ultrasound order be faxed to [phone]. Review and advise. documented in this encounter [facility] 01-26-2023 Miscellaneous Notes January 26, 2023 PID: [id number] Vickey Hartman [address] [facility] [address] [address] Dear Ms. Hartman, Your recent breast imaging exam on 01/23/2023 showed a possible finding that requires additional imaging studies for a complete evaluation. Most such findings are probably benign (not cancer). Your mammogram demonstrates that you have dense breast tissue, which could hide abnormalities. Dense breast tissue, in and of itself, is a relatively common condition. Therefore, this information is not provided to cause undue concern; rather, it is to raise your awareness and promote discussion with your health care provider regarding the presence of dense breast tissue in addition to other risk factors. If you have a healthcare provider who ordered/prescribed your screening mammogram: Please call [phone] or [phone]: [phone] to schedule an appointment for your additional imaging (if you have not already done so). If you DO NOT have a healthcare provider (ie you did not have an order/prescription for your screening mammogram): Please call to schedule an appointment for your additional imaging (if you have not already done so). You must have an order/prescription from your physician when calling to schedule your appointment. If your order/prescription is not electronic, you must bring the hard copy with you on the day of your exam to avoid delays. Your imaging studies and reports are kept on file at [facility] as part of your permanent medical record, and are available for your continuing care. Thank you for allowing us to help in meeting your health care needs. Sincerely, Dr. Kaba Interpreting Radiologist [facility] (Additional imaging) documented in this encounter [facility] 01-23-2023 Note HNO ID: [id number] Author: JorgePam jackman Mammo Tech Service: ? Author Type: Fancy Wire Drawer Type: Progress Notes Filed: 01/23/2023 8:28 AM Note Text: Radiology Service Progress Note PATIENT NAME: Vickey Hartman DATE OF SERVICE: January 23, 2023 TIME: 7:39 AM PATIENT IDENTITY VERIFICATION COMPLETED USING TWO (2) IDENTIFIERS: Name and Date of confirmed by patient verbally. FALL SCREENING: Has the patient had 2 falls in the last year or 1 fall with injury or currently using an Ambulatory Assistive Device (Walker, Cane, Wheelchair, Crutches, etc.)? No PATIENT GENDER DATA: Female. status: : No status: NO. PATIENT RELEVANT IMPLANT DATA REVIEWED: Not Applicable RADIOLOGY DEPARTMENT: Mammography PERIPHERAL IV DATA: Not applicable SIGNED BY: Cathryn Lara January 23, 2023 7:39 AM [facility] 01-23-2023 History of Presen t illness Narrative Radiology Service Progress Note PATIENT NAME: Vickey Hartman DATE OF SERVICE: January 23, 2023 TIME: 7:39 AM PATIENT IDENTITY VERIFICATION COMPLETED USING TWO (2) IDENTIFIERS: Name and Date of confirmed by patient verbally. FALL SCREENING: Has the patient had 2 falls in the last year or 1 fall with injury or currently using an Ambulatory Assistive Device (Walker, Cane, Wheelchair, Crutches, etc.)? No PATIENT GENDER DATA: Female. status: : No status: NO. PATIENT RELEVANT IMPLANT DATA REVIEWED: Not Applicable RADIOLOGY DEPARTMENT: Mammography PERIPHERAL IV DATA: Not applicable SIGNED BY: aCthryn Lara January 23, 2023 7:39 AM documented in this encounter [facility] 01-02-2023 Note HNO ID: [id number] Author: Elizabeth Sanchez APRN.MANAGER TELEMARKETING Service: ? Author Type: Nurse Practitioner Type: Progress Notes Filed: 01/02/2023 8:15 AM Note Text: Vickey is a 47 year old who presents for an annual gynecologic exam with complaints, weight gain and pelvic pain . Has had pelvic pain intermittently for years. Pain is on the left side, sharp. Comes and goes. History c/s. Has had pain since son was born. History of ablation and tubal. Op record reports endometriotic-appearing lesions along the left fallopian tube. Menses: amenorrhea - ablation. Had some light bleeding 5 years after ablation, and then about 3 months. Slowly started to spread out in frequency. Last period was over 1 year ago. Contraception: tubal sterilization HPV vaccine: No Last Pap: normal 2021 HPV: unknown History of abnormal pap: Yes Last mammogram: Prior history of abnormal mammogram 2020. Had ultrasound and MRI - benign lesions bilaterally per patient at [facility] Sexually active: Yes History of STDS: None Pain with intercourse: No Postcoital bleeding: No Hot flashes: Yes, a couple times a week Night sweats: No Vaginal dryness: Yes OB History T0 L1 SAB0 IAB0 Ectopic0 Multiple0 Live Births0 Respiratory Physician History LMP: 12/06/2009, Ablation Age at Menarche: Age at First : Age at Menopause: Respiratory Physician History Comments: Sexual Activity: Yes; Male Contraception: Tubal Ligation PAST MEDICAL HISTORY Diagnosis Date Adjustment disorder with depressed mood 12/10/2005 Carpal tunnel syndrome, bilateral Previously seeing pain management Degeneration of intervertebral disc, site unspecified 05/2006 lumbar spine.She will be seeing [facility] Dysmetabolic syndrome X 12/10/2005 Elevated cholesterol Essential hypertension Generalized anxiety disorder 07/29/2006 GERD (gastroesophageal reflux disease) Irregular menstrual cycle Obesity (BMI 30.0-34.9) Peptic ulcer, unspecified site, unspecified as acute or chronic, without mention of hemorrhage or perforation Phlebitis and thrombophlebitis of unspecified site Polycystic ovaries 12/10/2005 Dr. Gutierrez PAST SURGICAL HISTORY Procedure Laterality Date DELIVERY ONLY 09/25/2003 , low cervical COLONOSCOPY SCREENING 08/01/2022 DILATION AND CURETTAGE DXAND/THER NONOBSTETRIC 06/10/2011 Dilation AND curettage- laparoscopic bilateral tubal occlusion with Filshie clips NovaSure endometrial ablation procedure. Dr. Elizabeth Richardson [facility] INSERT INTRAUTERINE DEVICE 09/2007 Mirena-copper base no hormone. inserted REMOVE IUD 2009 S BALLOON,UTERINE ABLATION [id number] TONSILLECTOMY PRIMARY/SECONDARY Tonsillectomy TUBAL LIGATION 2011 FAMILY HISTORY Problem Relation Age of Onset other (bowel tumor) Mother benign other (brittle bone) Mother Headache Father Hypertension Father Heart Father valve disorder Breast Cancer Maternal Grandmother Cancer Maternal Grandfather lung Heart Maternal Grandfather Prostate Cancer Paternal Grandfather SOCIAL HISTORY Social History Tobacco Use Smoking status: Former Types: Cigarettes Quit date: 02/16/1994 Years since quittin.8 Passive exposure: Never Smokeless tobacco: Never Tobacco comments: Pt smoked about a 1/4 pack a week for approx 2 1/2 year Vaping Use Vaping Use: Never used Substance Use Topics Alcohol use: Yes Alcohol/week: 5.0 standard drinks of alcohol Types: 2 Glasses of Wine (5oz) per week Drug use: No REVIEW OF SYSTEMS Abdomen: No abdominal pain, nausea, vomiting, diarrhea, or constipation. No bloating, early satiety, indigestion, or increased flatulence. Bladder: No dysuria, gross hematuria, urinary frequency, urinary urgency, or incontinence. Breast: No breast lumps, nipple d/c, overlying skin changes, redness or skin retraction. Allergies and current medication updated:Yes EXAM: Ht 5' 4.5 (1.64m) Wt 209 lb 12.8 oz (95.2kg) LMP 12/06/2009 BMI 35.47 kg/(m2). GENERAL: pleasant, female in no apparent distress HEENT: Normocephalic, atraumatic, mucus membranes moist, and no lesions NECK: Supple, full range of motion, no adenopathy, and thyroid normal DERMATOLOGY: Normal, without lesions, non-icteric, and non-hirsute BREAST: soft, non-tender, symmetric, no dominant mass, normal nipple-areolar complex, no lymphadenopathy, and no nipple discharge CHEST: Normal inspiratory effort ABDOMEN: soft, non-tender, and no masses PELVIC: external genitalia normal, normal Bartholin's glands, urethra, Ross's glands, no vulvar lesions, no cervical lesions, good vaginal support, physiologic discharge present, normal appearing perineal body and perianal region BIMANUAL: uterus normal size, shape and consistency, no adnexal masses, and non-tender RECTOVAGINAL: deferred. NEURO: alert and oriented x3,exam grossly non-focal EXTREMITIES: normal ASSESSMENT/PLAN: 1) Health maintenance: P (more content not included)... [facility] 01-02-2023 Instructions Elizabeth Sanchez APRN.MANAGER TELEMARKETING - 01/02/2023 7:49 AM EST I recommend following up with your primary care provider about your blood pressure today: 140/80. Please schedule your mammogram at your earliest convenience. Not all WOMEN experience menopause in the same way. For some, menopause can bring on an array of uncomfortable symptoms. Others may experience few if any discomforts. This information has been prepared to help you manage the most common changes associated with the midlife transition. RELIEVING HOT FLASHES * Identify and avoid your hot flash triggers. Common triggers may include stress, caffeine, alcohol, spicy foods, tight clothing, heat and cigarette smoke. * Keep the bedroom cool. Use fans during the day. Wear light layers of clothes with natural fibers. * Try deep, slow abdominal paced breathing (6 to 8 breaths per minute). Practice deep breathing for 15 minutes in the morning, 15 minutes in the evening and at the onset of hot flashes. * Exercise daily. Walking, swimming, dancing and bicycling with helmet are good choices along with yoga. * Add soy protein in the form of foodstuffs NOT supplements(40-60 mg) to your diet daily in place of animal protein. Promensil and isoflavone tablets have NOT been shown to significantly help menopausal symptoms * Black cohosh (in the form of Remifemin) can be used for hot flashes and has been approved by [place] [employer] [place] for only 6 months of use, however has NOT been well studied in the [place] for middle or intermediate school principal effects AND THERE HAVE BEEN REPORTS OF LIVER TOXICITY WITH BLACK COHOSH USE. (Avoid kava kava, valerian root and beware that most herbal products are NOT regulated in the [place] and some have been associated with liver toxicity) NOTE: HORMONE THERAPY (HT) is the MOST EFFECTIVE treatment and the only FDA approved treatment for menopausal symptoms. Any form of hormones, including 'bioidentical' hormones have risks as well as benefits. * Antidepressants like effexor (venlaflaxine) a NSRI or Pristiq (desvenlafaxine) another agent, neurontin (gabapentin) may help block hot flashes and all have risks and benefits like any prescription or off the shelf medicine. * Use of bellergal is discouraged as it contains an addictive barbiturate. RELIEVING INSOMNIA * Keep the bedroom cool to prevent night sweats. Special chill pillows that are cool are available. * Avoid using sleeping pills. * Exercise daily but not right before bedtime. * Avoid caffeine and alcohol at night. * Take a warm shower at bedtime. * Wear socks to bed (lowers central body temperature) COPING :WITH MOOD SWINGS, FEARS AND DEPRESSION * Find a self-calming skill to practice, such as yoga, meditation or slow deep breathing. * Avoid tranquilizers, if possible, however prescription anti-depressants can be very effective. * Engage in a creative outlet that fosters a sense of achievement. * Stay connected with your family and community; nurture your friendships. RELIEVING PAINFUL INTERCOURSE * Try using a vaginal water-based moisturizing lotion 3 times a week (like replens or SILK-E) or lubricant during intercourse like KY jelly or lubrin or astroglide. *Local estrogen treatments for the vagina/bladder like estring vaginal ring can be used and estring can be used in breast cancer survivors as only a local therapy PREVENTING OSTEOPOROSIS * Calcium and vitamin D can slow bone loss and may decrease fractures. Consume1,500 milligrams of calcium a day in divided doses. Calcium is necessary but not always sufficient. Good sources of calcium are calcium supplements, like Tums, fruit juices and breads; lowfat dairy products; green leafy vegetables such as broccoli, kale and spinach greens, almonds; and soy milk. Calcium CITRATE like Citracal D is well absorbed with or without food/stomach acid and is the preferred calcium supplement in women on stomach acid blockers and women with a history of kidney stones. * Vitamin D aids in the absorption of calcium and stimulates bone formation. Consume at least OF SEPARATE 1,000 iu international units of vitamin D a day and 2,000 iu daily if you have been found to be low * Eat foods low in sodium, low in animal protein and low in caffeine. * Bone mass is built before menopause as a result of exercising, diet, and genetics. Exercises that increase bone mass are the ones that make the muscles work against gravity. Walking and muscle-building exercise may reduce bone loss and fractures and improve balance. Visit www.nof.org, the National Osteoporosis Foundation web site for more bone tips. PREVENTING HEART DISEASE * Eat a variety of vegetables, fruits and whole grains, including soy foods (NOT supplements). Limit salt, cholesterol and fat, especially animal fat. Consider ingesting 25 grams of soy a day. Avoid Transfats the 'partially hydrogenated oils.' Consume the omega 3 fats in flaxseed, fish, tuna, salmon, and walnuts and almonds at least twice a week. * Get a least 30-60 minutes of moderate exercise over the course of each day. Many activities increase the heart rate, including gardening, walking, dancing and aerobic exercises. The activity period does not need to be continuous. Consider getting a pedometer to monitor your activity and strive to walk at least 10,000 steps a day. * Do NOT smoke.Even 1-2 cigarrettes a day increases risk. * Maintain a healthy weight. Know your BMI (body mass index) * Follow your physician's instructions for controlling high blood pressure-note new guidelines indicate that BP of over 115/75 are associated with potential organ damage. Diabetes prevention and control is very important as diabetes is a 'heart diease equivalent'. Cholesterol lowering with diet and statin agents have been shown to reduce the risk of heart disease. Consider having an [facility] blood test for further cardiac risk assessment if you have borderline elevations in the blood lipids/fats. * Take a vitamin supplement under physician guidance. Choose one that contains the antioxidants including vitamins E and C and B complex like centrum silver. Avoid taking B-carotene supplements. * Take one aspirin daily, ONLY if approved by your physician based on your risk for heart disease. (Women at LOW risk for heart disease should NOT take daily aspirin-however women by age 65 should consider a baby aspirin daily as it has been associated with a 30% stroke risk reduction). web info: www.menopause.org www.[facility].org/womenshe alth Calcium and Vitamin D Supplementation (from the National Institutes of Health Office of Dietary Supplements 2011) Calcium is required by the body for blood vessel, muscle, hormone and nerve functioning. Most of the body's calcium is stored in the bones and teeth where it supports structure and function. Bone is continuously broken down and reformed. When bone breakdown exceeds formation, especially in postmenopausal women, bone loss can increase the risk of osteoporosis and fractures. In addition to low calcium intake, women who smoke, have a family history of osteoporosis, are thin, or , or who take certain medications such as cancer chemotherapy, seizure mediations and steroids are at increased risk of osteoporosis. The calcium requirements in women change with age. The National Institutes of Health (NIH) recommends: 1000mg elemental calcium for premenopausal women age 19-50 1200mg elemental calcium for postmenopausal women and all women over 50 Milk, yogurt, and cheese are rich natural sources of calcium and are the major food contributors in the [place]. For example, 8oz of milk (whole, lowfat or skim) contains about 300mg calcium, 8oz of yogurt contains 415mg. Nondairy sources include salmon and sardines and vegetables, such as Kazakh cabbage, kale, and broccoli. Foods fortified with calcium include many fruit juices, tofu and cereals. For more food calcium content information, visit http://ods.od.nih.gov/factsheets /calcium. Calcium supplements come in several different forms. Remember that the recommendations are for millgrams (mg) of elemental calcium which may be less than the total weight of the supplement. The amount of elemental calcium is required to be printed on the label. Calcium carbonate is the least expensive form. It must be taken on a full stomach to be properly absorbed. Some patients may experience gas or constipation. Calcium phosphate and calcium citrate may be taken either with or without food and tend to have less side effects but are generally more expensive. Because of its ability to neutralize stomach acid, calcium carbonate is found in some [id number] antacid products, such as Tums and Rolaids . Depending on its strength, each chewable pill or softchew provides 200 to 400 mg of elemental calcium. The percentage of calcium absorbed depends on the total amount of elemental calcium consumed at one time. Absorption is highest in doses <500mg. So a woman who takes 1,000mg/day of calcium from supplements should split the dose and take 500mg at two separate times during the day. Too much calcium can cause kidney stones, constipation, difficulty absorbing other nutrients and calcium buildup in blood vessels. Women under 50 should not exceed 2500mg/day (2000mg/day for women over 50) of calcium from food and supplements. Excessive alcohol and caffeine intake can inhibit absorption of calcium. Calcium can reduce the absorption of some medications if taken at the same time of day (bisphosphonates, thyroid medication, Phenytoin and other seizure medications, some antibiotics and iron supplements). Vitamin D promotes calcium absorption in the gut and maintains adequate blood levels of calcium and phosphate for normal bone growth and bone remodeling. Vitamin D also helps regulate cell growth as well as nerve, muscle and immune system function. Vitamin D is produced in the skin as a result of ultraviolet sunlight rays and must be altered in the liver and kidney to become its active form. Recommended intake according to the National Institutes of Health is 600 International Units (IU) for girls and women ages 1-70 and 800 IU for women over 70. Very few foods in nature contain vitamin D. The flesh of fatty fish (such as salmon, tuna, and mackerel) and fish liver oils are among the best sources. Small amounts of vitamin D are found in beef liver, cheese, mushrooms and egg yolks. Most people meet at least some of their vitamin D needs through exposure to sunlight. Season, time of day, length of day, cloud cover, smog, skin melanin content, and sunscreen are among the factors that affect UV radiation exposure and vitamin D synthesis. Despite the importance of the sun for vitamin D synthesis, it is prudent to limit exposure of skin to sunlight and avoid tanning beds. UV radiation is a carcinogen responsible for most of the estimated 1.5 million skin cancers that occur annually in the [place]. Lifetime cumulative UV damage to skin is also responsible for some age-associated dryness and other cosmetic changes. In supplements and fortified foods, vitamin D is available in two forms, D2 (ergocalciferol) and D3 (cholecalciferol). The two are equivalent at normal supplement doses. For women who require high supplement doses because of vitamin D deficiency, D3 may work better to raise blood levels. Some medications can prevent proper absorption of Vitamin D. These include laxatives, corticosteroids like prednisone, the seizure drugs phenobarbital and phenytoin, the weight-loss drug orlistat ( Xenical and AlliTM) and the cholesterol-lowering drug cholestyramine (Questran , LoCholest , and Prevalite ). Talk to your doctor about adjusting your recommended daily vitamin D dosage if you take these medications. You should not exceed 4000 mg of vitamin D supplementation daily unless specifically prescribed by your doctor. documented in this encounter [facility] 01-02-2023 History of Presen t illness Narrative Vickey is a 47 year old who presents for an annual gynecologic exam with complaints, weight gain and pelvic pain . Has had pelvic pain intermittently for years. Pain is on the left side, sharp. Comes and goes. History c/s. Has had pain since son was born. History of ablation and tubal. Op record reports endometriotic-appearing lesions along the left fallopian tube. Menses: amenorrhea - ablation. Had some light bleeding 5 years after ablation, and then about 3 months. Slowly started to spread out in frequency. Last period was over 1 year ago. Contraception: tubal sterilization HPV vaccine: No Last Pap: normal 2021 HPV: unknown History of abnormal pap: Yes Last mammogram: Prior history of abnormal mammogram 2020. Had ultrasound and MRI - benign lesions bilaterally per patient at [facility] Sexually active: Yes History of STDS: None Pain with intercourse: No Postcoital bleeding: No Hot flashes: Yes, a couple times a week Night sweats: No Vaginal dryness: Yes OB History T0 L1 SAB0 IAB0 Ectopic0 Multiple0 Live Births0 Respiratory Physician History LMP: 12/06/2009, Ablation Age at Menarche: Age at First : Age at Menopause: Respiratory Physician History Comments: Sexual Activity: Yes; Male Contraception: Tubal Ligation PAST MEDICAL HISTORY Diagnosis Date Adjustment disorder with depressed mood 12/10/2005 Carpal tunnel syndrome, bilateral Previously seeing pain management Degeneration of intervertebral disc, site unspecified 05/2006 lumbar spine.She will be seeing [facility] Dysmetabolic syndrome X 12/10/2005 Elevated cholesterol Essential hypertension Generalized anxiety disorder 07/29/2006 GERD (gastroesophageal reflux disease) Irregular menstrual cycle Obesity (BMI 30.0-34.9) Peptic ulcer, unspecified site, unspecified as acute or chronic, without mention of hemorrhage or perforation Phlebitis and thrombophlebitis of unspecified site Polycystic ovaries 12/10/2005 Dr. Gutierrez PAST SURGICAL HISTORY Procedure Laterality Date DELIVERY ONLY 09/25/2003 , low cervical COLONOSCOPY SCREENING 08/01/2022 DILATION & CURETTAGE DX&/THER NONOBSTETRIC 06/10/2011 Dilation & curettage- laparoscopic bilateral tubal occlusion with Filshie clips NovaSure endometrial ablation procedure. Dr. Elizabeth Richardson [facility] INSERT INTRAUTERINE DEVICE 09/2007 Mirena-copper base no hormone. inserted REMOVE IUD 2009 S BALLOON,UTERINE ABLATION 23520 TONSILLECTOMY PRIMARY/SECONDARY <AGE 12 Tonsillectomy TUBAL LIGATION 2012 FAMILY HISTORY Problem Relation Age of Onset other (bowel tumor) Mother benign other (brittle bone) Mother Headache Father Hypertension Father Heart Father valve disorder Breast Cancer Maternal Grandmother Cancer Maternal Grandfather lung Heart Maternal Grandfather Prostate Cancer Paternal Grandfather SOCIAL HISTORY Social History Tobacco Use Smoking status: Former Types: Cigarettes Quit date: 02/16/1994 Years since quittin.8 Passive exposure: Never Smokeless tobacco: Never Tobacco comments: Pt smoked about a 1/4 pack a week for approx 2 1/2 year Vaping Use Vaping Use: Never used Substance Use Topics Alcohol use: Yes Alcohol/week: 5.0 standard drinks of alcohol Types: 2 Glasses of Wine (5oz) per week Drug use: No REVIEW OF SYSTEMS Abdomen: No abdominal pain, nausea, vomiting, diarrhea, or constipation. No bloating, early satiety, indigestion, or increased flatulence. Bladder: No dysuria, gross hematuria, urinary frequency, urinary urgency, or incontinence. Breast: No breast lumps, nipple d/c, overlying skin changes, redness or skin retraction. Allergies and current medication updated:Yes EXAM: Ht 5' 4.5 (1.64m) Wt 209 lb 12.8 oz (95.2kg) LMP 12/06/2009 BMI 35.47 kg/(m^2). GENERAL: pleasant, female in no apparent distress HEENT: Normocephalic, atraumatic, mucus membranes moist, and no lesions NECK: Supple, full range of motion, no adenopathy, and thyroid normal DERMATOLOGY: Normal, without lesions, non-icteric, and non-hirsute BREAST: soft, non-tender, symmetric, no dominant mass, normal nipple-areolar complex, no lymphadenopathy, and no nipple discharge CHEST: Normal inspiratory effort ABDOMEN: soft, non-tender, and no masses PELVIC: external genitalia normal, normal Bartholin's glands, urethra, Ross's glands, no vulvar lesions, no cervical lesions, good vaginal support, physiologic discharge present, normal appearing perineal body and perianal region BIMANUAL: uterus normal size, shape and consistency, no adnexal masses, and non-tender RECTOVAGINAL: deferred. NEURO: alert and oriented x3,exam grossly non-focal EXTREMITIES: normal ASSESSMENT/PLAN: 1) Health maintenance: Pap done with HPV. (Possibly done in 2021, but patient doesn't remember having done. Pap done today. To repeat in 5 years if normal.) Mammogram ordered. Nutrition, exercise and routine health maintenance exams reviewed. Recommend 15 minute walk immediately after dinner, increase protein intake. Exercise may help with hot flashes. - Consider follow up with Dora Hameed CNP for weight management. Calcium/Vitamin D supplementation information provided. 2) Contraception: tubal sterilization. 3) STD screening: Declined STD check. Up to date on colonoscopy 2022 4) Follow up one year or sooner as needed History of DVT (deep vein thrombosis) - ICD9: V12.51, ICD10: Z86.718 - 2007 - Negative for blood clotting disorders - Has PCP - Not a candidate for estrogen therapy or OCP (Has tubal) Chronic pelvic pain in female - ICD9: 625.9, 338.29, ICD10: R10.2, G89.29 - Likely related to endometriosis as stated in op record or pelvic adhesions - Ibuprofen recommended, warm compresses - To notify if worsening Vaginal dryness - ICD9: 625.8, ICD10: N89.8 - Recommend coconut oil or vaginal moisturizers Recommend follow up with PCP about blood pressure. RTO in 1 year or sooner as needed. To notify if hot flashes are increasing/becoming intolerable. Elizabeth Sanchez APRN.CURTIS documented in this encounter [facility] Encounter for screening mammogram for breast cancer Dense breast tissue [facility] Diagnosis Abnormal mammogram- Primary Abnormal mammogram, unspecified [facility] Diagnosis Abnormal mammogram- Primary Abnormal mammogram, unspecified [facility] Diagnostic Procedure Only (Routine) - Authorized Specialty Diagnoses / Procedures Referred By Contkunal t Referred To Contact [facility] Diagnoses Encounter for screening mammogram for breast cancer Dense breast tissue Procedures TATO SCREENING W SANTOS SCREENING DIGITAL BREAST TOMOSYNTHESIS BI SCREENING MAMMOGRAPHY BI 2-VIEW BREAST INC CAD Elizabeth Sanchez APRN.CNP [address] [place] [address] [facility] [address] [place] [address] Referral ID Status Reason Start Date Expiration Date Visits Requested Visits Authorized [id number] Authorized Auto-Generat ed Referral 3 02/01/2024 1 1 [facility] Diagnostic Procedure Only (Routine) - Pending Review Specialty Diagnoses / Procedures Referred By Zaki yepez Referred To Contact [facility] Diagnoses Abnormal mammogram Procedures US BREAST LTD RIGHT US BREAST UNI REAL TIME WITH IMAGE LIMITED Elizabeth Sanchez APRN.CNP [address] [place] [address] [facility] [address] [place] [address] Referral ID Status Reason Start Date Expiration Date Visits Requested Visits Authorized [id number] Pending Review Auto-Generat ed Referral 3 02/25/2024 1 1 * Diagnostic Procedure Only (Routine) - Pending Review Specialty Diagnoses / Procedures Referred By Zaki yepez Referred To Contact [facility] Diagnoses Abnormal mammogram Procedures US BREAST LTD LEFT US BREAST UNI REAL TIME WITH IMAGE LIMITED Elizabeth Sanchez APRN.CNP [address] [place] [address] [facility] [address] [place] [address] Referral ID Status Reason Start Date Expiration Date Visits Requested Visits Authorized [id number] Pending Review Auto-Generat ed Referral 3 02/25/2024 1 1 * Diagnostic Procedure Only (Routine) - Pending Review Specialty Diagnoses / Procedures Referred By Zaki t Referred To Contact [facility] Diagnoses Abnormal mammogram Procedures TATO DIAGNOSTIC BILATERAL DIAGNOSTIC MAMMOGRAPHY COMPUTER-AIDED DETCJ Elizabeth Bosch APRN.CNP [address] [place] [address] [facility] [address] [place] [address] Referral ID Status Reason Start Date Expiration Date Visits Requested Visits Authorized [id number] Pending Review Auto-Generat ed Referral 3 02/25/2024 1 1 [facility] for referral (narrative)* Diagnostic Procedure Only (Routine) - Pending Review Specialty Diagnoses / Procedures Referred By Zaki t Referred To Contact [facility] Diagnoses Abnormal mammogram Procedures TATO DIAGNOSTIC BILATERAL DIAGNOSTIC MAMMOGRAPHY COMPUTER-AIDED DETCJ Elizabeth Bosch APRN.CNP [address] [place] [address] [facility] [address] [place] [address] Referral ID Status Reason Start Date Expiration Date Visits Requested Visits Authorized [id number] Pending Review Auto-Generat ed Referral 3 03/06/2024 1 1 * Diagnostic Procedure Only (Routine) - Pending Review Specialty Diagnoses / Procedures Referred By Zaki t Referred To Contact [facility] Diagnoses Abnormal mammogram Procedures US BREAST LTD LEFT US BREAST UNI REAL TIME WITH IMAGE LIMITED Elizabeth Sanchez APRN.CNP [address] [place] [address] [facility] [address] [place] [address] Referral ID Status Reason Start Date Expiration Date Visits Requested Visits Authorized [id number] Pending Review Auto-Generat ed Referral 3 03/06/2024 1 1 * Diagnostic Procedure Only (Routine) - Pending Review Specialty Diagnoses / Procedures Referred By Zaki yepez Referred To Contact [facility] Diagnoses Abnormal mammogram Procedures US BREAST LTD RIGHT US BREAST UNI REAL TIME WITH IMAGE LIMITED Elizabeth Sanchez APRN.CNP [address] [place] [address] [facility] [address] [place] [address] Referral ID Status Reason Start Date Expiration Date Visits Requested Visits Authorized [id number] Pending Review Auto-Generat ed Referral 3 03/06/2024 1 1 [facility] Diagnostic Procedure Only (Routine) - Closed Specialty Diagnoses / Procedures Referred By Zaki yepez Referred To Contact [facility] Diagnoses Encounter for screening mammogram for breast cancer Dense breast tissue Procedures TATO SCREENING W SANTOS SCREENING DIGITAL BREAST TOMOSYNTHESIS BI SCREENING MAMMOGRAPHY BI 2-VIEW BREAST INC CAD Elizabeth Sanchez APRN.CNP [address] [place] [address] [facility] [address] [place] [address] Referral ID Status Reason Start Date Expiration Date V isits Requested Visits Authorized [id number] Closed Auto-Generate d Referral 01/02/2023 02/01/2024 1 1 [facility] Summary Purpose Family History No Family History Records Found Advance Directives No Advanced Directives Records Found Additional Source Comments Source Comments (unrecognize d section and content) In the event this informatio n is protected by the Federal Confidentiality of Alcohol and Drug Abuse Patient Records regulations: The Federal rules restrict any use of the information to criminally investigate or prosecute any alcohol or drug abuse patient.[facility] the event this information is protected by the Federal Confidentiality of Alcohol and Drug Abuse Patient Records regulations: The Federal rules restrict any use of the information to criminally investigate or prosecute any alcohol or drug abuse patient.[facility] the event this information is protected by the Federal Confidentiality of Alcohol and Drug Abuse Patient Records regulations: The Federal rules restrict any use of the information to criminally investigate or prosecute any alcohol or drug abuse patient.[facility] the event this information is protected by the Federal Confidentiality of Alcohol and Drug Abuse Patient Records regulations: The Federal rules restrict any use of the information to criminally investigate or prosecute any alcohol or drug abuse patient.[facility] the event this information is protected by the Federal Confidentiality of Alcohol and Drug Abuse Patient Records regulations: The Federal rules restrict any use of the information to criminally investigate or prosecute any alcohol or drug abuse patient.[facility] the event this information is protected by the Federal Confidentiality of Alcohol and Drug Abuse Patient Records regulations: The Federal rules restrict any use of the information to criminally investigate or prosecute any alcohol or drug abuse patient.[facility] Reason for Visit (unrecogniz ed section and content) Reason Comments Orders Reason Comments Orders Care Teams (unrecognized sec tion and content) 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 Specialty Start Date End Date Pcp, No, [employer] WEAVER PCP - General 10/30/22 05/17/23 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 Specialty Start Date End Date Pcp, No, FRENCH WEAVER PCP - General 10/30/22 05/17/23 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 This clinical summary was aggregated from multiple sources. Caution should be exercised in using it in the provision of clinical care. This summary normalizes information from multiple sources, and as a consequence, information in this document may materially change the coding, format and clinical context of patient data. In addition, data may be omitted in some cases. CLINICAL DECISIONS SHOULD BE BASED ON THE PRIMARY CLINICAL RECORDS. [facility]. provides no warranty or guarantee of the accuracy or completeness of information in this document.
[2023-03-04 12:17] LABS: Absolute Lymphocyte Count 1.76 X10^3/uL (0.83-4.51); Absolute Neutrophil Count 3.4 X10^3/uL (2.0-7.7); Basophil# 0.06 X10^3/uL; Basophil% 1.1 % (0-1); Eosinophils% 1.8 % (0-5); Hematocrit 44.9 % (37-47); Hemoglobin 14.3 g/dL (12.0-15.0); Lymphocyte # 1.76 X10^3/ul (0.83-4.51); Lymphocyte % 30.9 % (19-41); Mean Corp Hgb Conc 31.8 g/dL (32-36); Mean Corpuscular Hgb 29.8 pg (27.0-32.0); Mean Corpuscular Volume 93.5 fL (81-99); Mean Platelet Vol. 9.4 fl (6.2-12.0); Monocyte# 0.34 X10^3/uL; NRBC Flagged by Analyzer 0 % (0-5); Neutrophil # 3.43 X10^3/uL (2.7-7.7); Platelet Count 233 K/mm3 (150-450); RBC Distribution Width CV 11.9 % (11.6-14.6); RBC Distribution Width SD 41.2 fl (35.1-43.9); White Blood Count 5.7 K/mm3 (4.4-11.0)
[2023-03-04 13:03] LABS: ALB/GLOB Ratio 1.1 RATIO (0.9-2.4); AST(SGOT) 27 U/L (15-37); Alanine Aminotransfer ALT/SGPT 38 U/L (13-56); Albumin, Serum 3.9 g/dL (3.2-5.0); Alkaline Phosphatase 51 U/L (45-117); Anion Gap 5 (5-15); BUN 16 mg/dL (7-18); BUN/Creat Ratio 18.5 RATIO (10-20); Calcium,Total 9.6 mg/dL (8.5-10.1); Chloride 107 mmol/L (98-107); Cholesterol 164 mg/dL (200); Creatinine, Serum 0.87 mg/dL (0.55-1.02); EST Glomerular Filtration Rate 75 mL/min (>60); Est Glom Filt Rate - Afr Amer 90 mL/min (>60); Globulin 3.6 g/dL (2.2-4.2); Glucose 124 mg/dL (74-106); High Density Lipoprotein 52 mg/dL; Magnesium 2.2 mg/dL (1.6-2.6); Potassium 4.4 mmol/L (3.5-5.1); Protein, Total 7.5 g/dL (6.4-8.2); Sodium Level 140 mmol/L (136-145); Triglycerides 108 mg/dL; Very Low Density Lipoprotein 22 mg/dL (5-40)
== END | disposition home or self-care (01) ==
LOC: BIMLAB 08:08
PROVIDERS: PCP Internal Medicine; Visit Provider Physician Assistant
DX: I10 Essential (primary) hypertension (principal); E78.5 Hyperlipidemia, unspecified; K21.9 Gastro-esophageal reflux disease without esophagitis
CPT/HCPCS: 36415; 80053; 80061; 83735; 85025

== ENCOUNTER → 2024-03-16 | Outpatient (CLI) | payer OTHER, SELFPAY ==
[2024-03-16 12:24] LABS: Absolute Lymphocyte Count 1.57 X10^3/uL (0.83-4.51); Absolute Neutrophil Count 6.9 X10^3/uL (2.0-7.7); Basophil# 0.07 X10^3/uL; Basophil% 0.8 % (0-1); Eosinophil# 0.08 X10^3/uL; Eosinophils% 0.9 % (0-5); Hematocrit 45.2 % (37-47); Hemoglobin 14.4 g/dL (12.0-15.0); Lymphocyte # 1.57 X10^3/ul (0.83-4.51); Lymphocyte % 17.1 % (19-41); Mean Corp Hgb Conc 31.9 g/dL (32-36); Mean Corpuscular Hgb 29.8 pg (27.0-32.0); Mean Corpuscular Volume 93.4 fL (81-99); Mean Platelet Vol. 9.9 fl (6.2-12.0); Monocyte# 0.56 X10^3/uL; Monocyte% 6.1 % (0-10); NRBC Flagged by Analyzer 0 % (0-5); Neutrophil # 6.87 X10^3/uL (2.7-7.7); Neutrophil % 74.8 % (47-70); Platelet Count 216 K/mm3 (150-450); RBC Distribution Width CV 12.7 % (11.6-14.6); RBC Distribution Width SD 44.1 fl (35.1-43.9); Red Blood Count 4.84 M/mm3 (4.2-5.4); White Blood Count 9.2 K/mm3 (4.4-11.0)
[2024-03-16 12:42] LABS: ALB/GLOB Ratio 0.9 RATIO (0.9-2.4); AST(SGOT) 22 U/L (15-37); Alanine Aminotransfer ALT/SGPT 26 U/L (13-56); Albumin, Serum 3.6 g/dL (3.2-5.0); Alkaline Phosphatase 60 U/L (45-117); Anion Gap 8 (5-15); BUN 17 mg/dL (7-18); BUN/Creat Ratio 22.5 RATIO (10-20); Calcium,Total 9.1 mg/dL (8.5-10.1); Chloride 103 mmol/L (98-107); Cholesterol 157 mg/dL (200); Creatinine, Serum 0.76 mg/dL (0.55-1.02); EST Glomerular Filtration Rate 87 mL/min (>60); Est Glom Filt Rate - Afr Amer 105 mL/min (>60); Globulin 3.9 g/dL (2.2-4.2); Glucose 126 mg/dL (74-106); High Density Lipoprotein 65 mg/dL; Potassium 4.4 mmol/L (3.5-5.1); Protein, Total 7.5 g/dL (6.4-8.2); Sodium Level 136 mmol/L (136-145); Triglycerides 75 mg/dL; Very Low Density Lipoprotein 15 mg/dL (5-40)
== END | disposition home or self-care (01) ==
LOC: BIMLAB 08:04
PROVIDERS: PCP Internal Medicine; Visit Provider Physician Assistant
DX: E78.2 Mixed hyperlipidemia (principal); I10 Essential (primary) hypertension
CPT/HCPCS: 36415; 80053; 80061; 85025

== ENCOUNTER → 2024-03-18 | Outpatient (CLI) | payer OTHER, SELFPAY ==
--- NOTE | 2024-03-18 07:28 | BI_ITS ---
PROCEDURE: SCRN MAMM (CAD)W/SANTOS BILAT REASON FOR EXAM: F, Age 48 y/o, routine annual mammogram. Grandmother with breast cancer. TECHNIQUE: Bilateral screening digital breast tomosynthesis with 2D and 3D images. Computer aided detection. COMPARISON: Prior exam(s) dating back to February 10, 2023.. FINDINGS: There are scattered areas of fibroglandular density. Asymmetry of breast tissue were more breast tissue is seen in the upper-outer quadrant of the left breast as compared to prior examination. This is unchanged. No suspicious masses, areas of developing architectural distortion, or suspicious calcifications. BI/SCRN MAMM (CAD)W/SANTOS BILAT IMPRESSION: BI-RADS 2: BENIGN. RECOMMEND ANNUAL MAMMOGRAPHIC SCREENING. Follow-up code: Routine Follow-up The patient will be notified of the results by letter. Reading Location: [place] [address]
== END | disposition home or self-care (01) ==
LOC: OPBI 07:28
PROVIDERS: PCP Internal Medicine; Referring Provider Physician Assistant; Visit Provider Physician Assistant
DX: Z12.31 Encounter for screening mammogram for malignant neoplasm of breast (principal)
CPT/HCPCS: 77063; 77067